=== PATIENT | male | born 1960 | race Caucasian/White ===

== ENCOUNTER 2019-07-27 19:07 | Inpatient (IN) ==
[2019-07-27] MEDS ORDERED: ONDANSETRON INJ 2 MG/ML 2 ML VIAL IV STA (19:16)
[2019-07-27] MEDS ORDERED: SODIUM CHLORIDE 0.9% 1000ML 1,000 ML IV SCH (19:30)
--- NOTE | 2019-07-27 19:32 | Emergency Department Note ---
Entered by Destiney Carroll acting as a scribe for History of Present Illness General Chief complaint: Mental Health Evaluation Stated complaint: ETOH, MHID Time Seen by Provider: 07/27/19 19:08 Source: patient, family and EMS Mode of arrival: ambulatory Limitations: intoxication History of Present Illness Onset (ago): day(s) 1 Location: head Radiation: non-radiation Pain Consistency: + constant Relieved By: + none Exacerbated By: + other (drinking alcohol) Associated symptoms: + nausea/vomiting Treatments prior to arrival: none The patient is a 59 year old male who presents to the ED with complaints of ETOH overdose. He was brought to the ED via EMS. He drank 3/4 a bottle of 80 proof vodka starting at 1630 today and states he was trying to kill himself. He has been making suicidal statements all week per his . EMS states he vomited several times in the field. The patient denies doing any drugs today and EMS does not think he took anything else except drinking the vodka. He denies any recent falls or trauma. History is limited secondary to the patients current intoxication. Home Medications Home Medications Medication Instructions Recorded Confirmed Type No Known Home Medications 07/27/19 07/27/19 History Allergies Allergy/AdvReac Type Severity Reaction Status Date / Time No Known Allergies Allergy Unverified 07/27/19 19:50 Past Med/Surg History Medical History Alcoholism Depression Social History Feels Safe at Home: Yes Smoking Status: Never smoker Review of Systems See HPI for pertinent positives & negatives. Unobtainable due to cognitive status (ROS is limited secondary to ETOH intoxication) Physical Exam Vital Signs Vital Signs - 24 hr 07/27/19 19:27 07/27/19 20:30 07/27/19 21:11 Temperature 36.7 C Temperature Source Oral Pulse Rate 59 L Pulse Rate [Apical] 63 63 Pulse Rate from SpO2 Sensor Respiratory Rate 16 16 18 Respiratory Effort / Characteristics Non-Labored Spontaneous Non-Labored Spontaneous Non-Labored Spontaneous Respiratory Depth Normal Normal Normal Respiratory Pattern Regular Regular Blood Pressure 100/65 Blood Pressure [Left Arm] 104/59 L 70/40 L Blood Pressure Mean 76 Blood Pressure Mean [Left Arm] 74 50 Blood Pressure Position Lying Blood Pressure Position [Left Arm] Lying Right Lateral Pulse Oximetry 99 95 95 Oxygen Delivery Method Room Air Room Air Room Air Sepsis Recent Fever Within 48 Hours No Sepsis Action Taken by Nursing No Action Required 07/27/19 21:33 07/27/19 22:01 07/27/19 22:30 Temperature Temperature Source Pulse Rate Pulse Rate [Apical] 66 67 70 Pulse Rate from SpO2 Sensor Respiratory Rate 21 18 14 Respiratory Effort / Characteristics Non-Labored Spontaneous Non-Labored Spontaneous Non-Labored Spontaneous Respiratory Depth Normal Normal Normal Respiratory Pattern Regular Regular Regular Blood Pressure Blood Pressure [Left Arm] 89/53 L 92/58 L 106/56 L Blood Pressure Mean Blood Pressure Mean [Left Arm] 65 69 72 Blood Pressure Position Blood Pressure Position [Left Arm] Lying Lying Lying Pulse Oximetry 98 98 95 Oxygen Delivery Method Room Air Room Air Room Air Sepsis Recent Fever Within 48 Hours Sepsis Action Taken by Nursing 07/27/19 23:00 07/27/19 23:30 07/28/19 00:30 Temperature Temperature Source Pulse Rate 70 71 Pulse Rate [Apical] 68 Pulse Rate from SpO2 Sensor 70 70 Respiratory Rate 15 15 18 Respiratory Effort / Characteristics Non-Labored Respiratory Depth Normal Respiratory Pattern Blood Pressure 97/59 L 92/58 L Blood Pressure [Left Arm] 111/68 Blood Pressure Mean 71 72 Blood Pressure Mean [Left Arm] 82 Blood Pressure Position Blood Pressure Position [Left Arm] Pulse Oximetry 94 94 97 Oxygen Delivery Method Room Air Sepsis Recent Fever Within 48 Hours Sepsis Action Taken by Nursing GENERAL: The patient is listless and slow to respond to questioning. He does appear somewhat intoxicated. He does follow commands well however. EYES: The conjunctivae are clear. The pupils are round and reactive. EARS, NOSE, MOUTH AND THROAT: The nose is without any evidence of any deformity. Mucous membranes are moist. Tongue is midline. NECK: The neck is nontender and supple. RESPIRATORY: Normal respiratory effort is noted there is no evidence of wheezing rhonchi or rales CARDIOVASCULAR: Regular rate and rhythm noted there no murmurs rubs or gallops normal S1 normal S2. GASTROINTESTINAL: The abdomen is soft. Abdomen is nontender. MUSCULOSKELETAL/EXTREMITIES: There is no evidence of gross deformity full range of motion is noted in the hips and shoulders. SKIN: There is no obvious evidence of any rash. There are no petechiae, pallor or cyanosis noted. NEUROLOGIC: Patient is oriented to person place and situation. The patient follows commands well and strength is symmetric. PSYCH: The patient is listless and his affect is very flat. He does admit to suicidal ideation. The patient's suicide note was also reviewed by myself with the mental health nurse outreach case manager. Course Course 191: The patient was evaluated in room A4 and a complete history and physical were performed. 0030: The patient will be evaluated by Mental Health when he is clinically sober. 0200: Psychiatric Case Management informed me the patient has been accepted by [facility] and will be further evaluated upstairs. Administered Medications Discontinued Medications Sodium Chloride (Nss 1000ml) 1,000 mls @ 999 mls/hr IV .Q1H1M JACKELYN Stop: 07/27/19 20:30 Last Infusion: 07/27/19 20:47 Dose: 0 mls/hr Documented by: [id number] Admin: 07/27/19 19:47 Dose: 999 mls/hr Documented by: [id number] Sodium Chloride (Nss 1000ml) 1,000 mls @ 999 mls/hr IV .Q1H1M ONE Stop: 07/27/19 22:04 Last Infusion: 07/27/19 22:11 Dose: 0 mls/hr Documented by: [id number] Admin: 07/27/19 21:10 Dose: 999 mls/hr Documented by: [id number] Ondansetron HCl (Zofran) 4 mg IV NOW STA Stop: 07/27/19 19:17 Last Admin: 07/27/19 19:46 Dose: 4 mg Documented by: [id number] Medical Decision Making Differential Diagnosis Differential: Mood Disorder, Overdose, Infectious, Electrolyte Abnormality, Cardiac, Hepatic, Endocrine, Toxicologic, Neurologic, amongst other pathologies entertained. Medical Records Attestation: I reviewed the patient's medical records. Home Medications Current Medication List: was personally reviewed by me Laboratory Data Attestation: I reviewed the patient's lab results. Result diagrams: 07/27/19 19:51 07/27/19 19:51 Lab Results 07/27/19 07/27/19 07/27/19 Range/Units 19:51 19:51 19:51 WBC 8.14 (4.8-10.8) K/uL RBC 4.23 L (4.7-6.1) M/uL Hgb 14.3 (14.0-18.0) g/dL Hct 41.0 L (42-52) % MCV 96.9 (80-100) fL MCH 33.8 (25-34) pg MCHC 34.9 (32-36) g/dL RDW Std Deviation 44.7 (36.4-46.3) fL RDW Coeff of Haley 12.7 (11.5-14.5) % Plt Count 278 (130-400) K/uL MPV 12.0 H (7.4-10.4) fL Immature Gran % (Auto) 0.2 % Neut % (Auto) 71.9 % Lymph % (Auto) 20.5 % Bureau % (Auto) 4.9 % Eos % (Auto) 2.0 % Baso % (Auto) 0.5 % Immature Gran # (Auto) 0.02 (0.00-0.02) K/uL Neut # (Auto) 5.85 (1.4-6.5) K/uL Lymph # (Auto) 1.67 (1.2-3.4) K/uL Bureau # (Auto) 0.40 (0.11-0.59) K/uL Eos # (Auto) 0.16 (0-0.5) K/uL Baso # (Auto) 0.04 (0-0.2) K/uL PT 11.0 (9.0-12.0) Seconds INR 1.1 (0.9-1.1) Carboxyhemoglobin % THgb Sodium 137 (136-145) mmol/L Potassium 3.4 L (3.5-5.1) mmol/L Chloride 106 (98-107) mmol/L Carbon Dioxide 22 (21-32) mmol/L Anion Gap 9.0 (3-11) BUN 14 (7-18) mg/dl Creatinine 0.98 (0.6-1.4) mg/dl Est Cr Clr Drug Dosing 79.2 ml/min Est GFR ( Amer) 96.1 Est GFR (Non-Af Amer) 82.9 BUN/Creatinine Ratio 14.3 (10-20) Glucose 121 H (70-99) mg/dl Osmolality (280-300) mOsm/kg Calcium 8.8 (8.5-10.1) mg/dl Magnesium 2.2 (1.8-2.4) mg/dl Total Bilirubin 1.4 H (0.2-1) mg/dl AST 15 (15-37) U/L ALT 20 (12-78) U/L Alkaline Phosphatase 47 (45-117) U/L Total Creatine Kinase 73 (39-308) U/L Troponin I < 0.015 (0-0.045) ng/ml Total Protein 7.0 (6.4-8.2) gm/dl Albumin 4.1 (3.4-5.0) gm/dl Globulin 2.9 (2.5-4.0) gm/dl Albumin/Globulin Ratio 1.4 (0.9-2) Urine Color Urine Appearance (Clear) Urine pH (4.5-7.5) Ur Specific [place] (1.000-1.030) Urine Protein (Negative) Urine Glucose (UA) (Negative) Urine Ketones (Negative) Urine Blood (Negative) Urine Nitrite (Negative) Urine Bilirubin (Negative) Urine Urobilinogen (Negative) Ur Leukocyte Esterase (Negative) Salicylates (2.8-20) mg/dl Urine Opiates Screen (Neg) Ur Methadone, Qual (Neg) Acetaminophen (10-30) ug/ml Urine Barbiturates (Neg) Ur Phencyclidine (PCP) (Neg) U Amphetamin/Meth Scrn (Neg) MDMA (Ecstasy) Screen (Neg) U Benzodiazepines Scrn (Neg) Ur Cocaine Metabolite (Neg) U Marijuana (THC) Screen (Neg) Ethyl Alcohol mg/dL (0-3) mg/dl 07/27/19 07/27/19 07/27/19 Range/Units 19:51 19:51 19:51 WBC (4.8-10.8) K/uL RBC (4.7-6.1) M/uL Hgb (14.0-18.0) g/dL Hct (42-52) % MCV (80-100) fL MCH (25-34) pg MCHC (32-36) g/dL RDW Std Deviation (36.4-46.3) fL RDW Coeff of Haley (11.5-14.5) % Plt Count (130-400) K/uL MPV (7.4-10.4) fL Immature Gran % (Auto) % Neut % (Auto) % Lymph % (Auto) % Bureau % (Auto) % Eos % (Auto) % Baso % (Auto) % Immature Gran # (Auto) (0.00-0.02) K/uL Neut # (Auto) (1.4-6.5) K/uL Lymph # (Auto) (1.2-3.4) K/uL Bureau # (Auto) (0.11-0.59) K/uL Eos # (Auto) (0-0.5) K/uL Baso # (Auto) (0-0.2) K/uL PT (9.0-12.0) Seconds INR (0.9-1.1) Carboxyhemoglobin % THgb Sodium (136-145) mmol/L Potassium (3.5-5.1) mmol/L Chloride (98-107) mmol/L Carbon Dioxide (21-32) mmol/L Anion Gap (3-11) BUN (7-18) mg/dl Creatinine (0.6-1.4) mg/dl Est Cr Clr Drug Dosing ml/min Est GFR ( Amer) Est GFR (Non-Af Amer) BUN/Creatinine Ratio (10-20) Glucose (70-99) mg/dl Osmolality 339 H (280-300) mOsm/kg Calcium (8.5-10.1) mg/dl Magnesium (1.8-2.4) mg/dl Total Bilirubin (0.2-1) mg/dl AST (15-37) U/L ALT (12-78) U/L Alkaline Phosphatase (45-117) U/L Total Creatine Kinase (39-308) U/L Troponin I (0-0.045) ng/ml Total Protein (6.4-8.2) gm/dl Albumin (3.4-5.0) gm/dl Globulin (2.5-4.0) gm/dl Albumin/Globulin Ratio (0.9-2) Urine Color Urine Appearance (Clear) Urine pH (4.5-7.5) Ur Specific [place] (1.000-1.030) Urine Protein (Negative) Urine Glucose (UA) (Negative) Urine Ketones (Negative) Urine Blood (Negative) Urine Nitrite (Negative) Urine Bilirubin (Negative) Urine Urobilinogen (Negative) Ur Leukocyte Esterase (Negative) Salicylates < 1.7 L (2.8-20) mg/dl Urine Opiates Screen (Neg) Ur Methadone, Qual (Neg) Acetaminophen < 2 L (10-30) ug/ml Urine Barbiturates (Neg) Ur Phencyclidine (PCP) (Neg) U Amphetamin/Meth Scrn (Neg) MDMA (Ecstasy) Screen (Neg) U Benzodiazepines Scrn (Neg) Ur Cocaine Metabolite (Neg) U Marijuana (THC) Screen (Neg) Ethyl Alcohol mg/dL 211.0 H (0-3) mg/dl 07/27/19 07/28/19 07/28/19 Range/Units 20:05 00:26 00:26 WBC (4.8-10.8) K/uL RBC (4.7-6.1) M/uL Hgb (14.0-18.0) g/dL Hct (42-52) % MCV (80-100) fL MCH (25-34) pg MCHC (32-36) g/dL RDW Std Deviation (36.4-46.3) fL RDW Coeff of Haley (11.5-14.5) % Plt Count (130-400) K/uL MPV (7.4-10.4) fL Immature Gran % (Auto) % Neut % (Auto) % Lymph % (Auto) % Bureau % (Auto) % Eos % (Auto) % Baso % (Auto) % Immature Gran # (Auto) (0.00-0.02) K/uL Neut # (Auto) (1.4-6.5) K/uL Lymph # (Auto) (1.2-3.4) K/uL Bureau # (Auto) (0.11-0.59) K/uL Eos # (Auto) (0-0.5) K/uL Baso # (Auto) (0-0.2) K/uL PT (9.0-12.0) Seconds INR (0.9-1.1) Carboxyhemoglobin 0.0 % THgb Sodium (136-145) mmol/L Potassium (3.5-5.1) mmol/L Chloride (98-107) mmol/L Carbon Dioxide (21-32) mmol/L Anion Gap (3-11) BUN (7-18) mg/dl Creatinine (0.6-1.4) mg/dl Est Cr Clr Drug Dosing ml/min Est GFR ( Amer) Est GFR (Non-Af Amer) BUN/Creatinine Ratio (10-20) Glucose (70-99) mg/dl Osmolality (280-300) mOsm/kg Calcium (8.5-10.1) mg/dl Magnesium (1.8-2.4) mg/dl Total Bilirubin (0.2-1) mg/dl AST (15-37) U/L ALT (12-78) U/L Alkaline Phosphatase (45-117) U/L Total Creatine Kinase (39-308) U/L Troponin I (0-0.045) ng/ml Total Protein (6.4-8.2) gm/dl Albumin (3.4-5.0) gm/dl Globulin (2.5-4.0) gm/dl Albumin/Globulin Ratio (0.9-2) Urine Color Yellow Urine Appearance Clear (Clear) Urine pH 5.0 (4.5-7.5) Ur Specific [place] 1.017 (1.000-1.030) Urine Protein Negative (Negative) Urine Glucose (UA) Negative (Negative) Urine Ketones 1+ H (Negative) Urine Blood Negative (Negative) Urine Nitrite Negative (Negative) Urine Bilirubin Negative (Negative) Urine Urobilinogen Negative (Negative) Ur Leukocyte Esterase Negative (Negative) Salicylates (2.8-20) mg/dl Urine Opiates Screen Neg (Neg) Ur Methadone, Qual Neg (Neg) Acetaminophen (10-30) ug/ml Urine Barbiturates Neg (Neg) Ur Phencyclidine (PCP) Neg (Neg) U Amphetamin/Meth Scrn Neg (Neg) MDMA (Ecstasy) Screen Neg (Neg) U Benzodiazepines Scrn Neg (Neg) Ur Cocaine Metabolite Neg (Neg) U Marijuana (THC) Screen Neg (Neg) Ethyl Alcohol mg/dL (0-3) mg/dl Imaging Data Radiologist's Impression: Radiology results as stated below per my review and the radiologist's interpretation: XR chest 1V portable CLINICAL HISTORY: OD COMPARISON STUDY: No previous studies for comparison. FINDINGS: Lung volumes are normal. There is no pneumothorax or pleural effusion. There are biapical opacities. Cardiomediastinal silhouette is unremarkable. There is no consolidation to suggest pneumonia and there is no evidence for pulmonary edema. IMPRESSION: 1. No acute cardiopulmonary findings. 2. Symmetric biapical opacities which are nonspecific but favor scarring. Radiographic follow-up is recommended. ACT 112: Negative or not required by law. Electronically signed by: Kevon Paredes M.D. 07/27/2019 7:56 PM ECG Data Attestation: I personally reviewed and interpreted this ECG as follows: Indication: + other (mental health ) Rate (beats per minute): 62 ECG Findings: + Other (No acute ST segments); no PACs and no PVCs Comparison ECG Date: no prior available Blood Pressure Blood Pressure Findings: Normal blood pressure Blood Pressure Disposition: did not require urgent referral MDM Narrative MDM: Measured serum osmolality is 339, there was no osmolar gap. The patient is a 59-year-old male who presented to the emergency department for a mental health evaluation. The patient was accompanied by his significant other as well as the police. The patient had a significant suicidal gesture this evening. He states that he has been feeling suicidal recently because of problems with his significant other. The patient has been receiving therapy with his significant other but things do not appear to be going well and the patient started drinking alcohol this evening in an attempt to hurt himself. The patient was treated with IV fluids in the emergency department. He was medically cleared in the emergency department. At this time his urine is still pending but he is much less clinically intoxicated. The patient is currently being evaluated by the mental health nurse outreach case manager. Likely the patient will require inpatient management to further treat this significant suicidal gesture. The patient was evaluated by the delegate from [facility] He was felt to be a good candidate for inpatient management. He was admitted to [facility] for further treatment. Impression & Plan Suicidal ideation, Depression, Alcohol intoxication, Suicide gesture Discharge Plan Visit Data *Final* Discharge Date/Time: 07/28/19 02:29 Chief Complaint: Mental Health Evaluation Stated Complaint: ETOH, MHID ED Provider: Clem Yeobah Discharge Problem: Suicidal ideation, Depression, Alcohol intoxication, Suicide gesture Patient Disposition: Admitted As Inpatient Discharge Instructions Interventions: ED Discharge Assessment Last Done: 07/28/19 02:29 The scribe's documentation has been prepared under my direction and personally reviewed by me in its entirety. I confirm that the note above accurately reflects all work, treatment, procedures, and medical decision making performed by me.
--- NOTE | 2019-07-27 19:57 | XRay Report ---
XR chest 1V portable CLINICAL HISTORY: OD COMPARISON STUDY: No previous studies for comparison. FINDINGS: Lung volumes are normal. There is no pneumothorax or pleural effusion. There are biapical o pacities. Cardiomediastinal silhouette is unremarkable. There is no consolidation to suggest pneumoni a and there is no evidence for pulmonary edema. IMPRESSION: 1. No acute cardiopulmonary findings. 2. Symmetric biapical opacities which are nonspecific but favor scarring. Radiographic follow-up is r ecommended. ACT 112: Negative or not required by law. Electronically signed by: Kevon Paredes M.D. 07/27/2019 7:56 PM
[2019-07-27 20:05] LABS: Basophils # (auto) 0.04 K/uL (0-0.2); Basophils % (auto) 0.5 %; Eosinophils # (auto) 0.16 K/uL (0-0.5); Hemoglobin 14.3 g/dL (14.0-18.0); Immature Granulocytes # (auto) 0.02 K/uL (0.00-0.02); Immature Granulocytes % (auto) 0.2 %; Lymphocytes # (auto) 1.67 K/uL (1.2-3.4); Lymphocytes % (auto) 20.5 %; Mean Corpuscular Hemoglobin 33.8 pg (25-34); Mean Corpuscular Hgb Conc 34.9 g/dL (32-36); Mean Corpuscular Volume 96.9 fL (80-100); Monocytes % (auto) 4.9 %; Neutrophils # (auto) 5.85 K/uL (1.4-6.5); Neutrophils % (auto) 71.9 %; Platelet Count 278 K/uL (130-400); RDW Coefficient of Variation 12.7 % (11.5-14.5); RDW Standard Deviation 44.7 fL (36.4-46.3); Red Blood Count 4.23 M/uL (4.7-6.1); White Blood Count 8.14 K/uL (4.8-10.8)
[2019-07-27 20:16] LABS: INR 1.1 (0.9-1.1)
[2019-07-27 20:30] LABS: Alanine Aminotransferase 20 U/L (12-78); Albumin Level 4.1 gm/dl (3.4-5.0); Aspartate Aminotransferase 15 U/L (15-37); BUN Creatinine Ratio 14.3 (10-20); Blood Urea Nitrogen 14 mg/dl (7-18); Calcium 8.8 mg/dl (8.5-10.1); Carbon Dioxide 22 mmol/L (21-32); Chloride 106 mmol/L (98-107); Creatinine Clr Calc Pharmacy 79.2 ml/min; Est GFR (African American) 96.1; Est GFR (Non-African American) 82.9; Glucose 121 mg/dl (70-99); Magnesium 2.2 mg/dl (1.8-2.4); Potassium 3.4 mmol/L (3.5-5.1); Sodium 137 mmol/L (136-145)
[2019-07-27 20:34] LABS: Albumin Globulin Ratio 1.4 (0.9-2); Alkaline Phosphatase 47 U/L (45-117); Bilirubin,Total 1.4 mg/dl (0.2-1); Creatine Kinase 73 U/L (39-308); Globulin 2.9 gm/dl (2.5-4.0); Troponin I < 0.015 ng/ml (0-0.045)
[2019-07-27] MEDS ORDERED: SODIUM CHLORIDE 0.9% 1000ML 1,000 ML IV ONE (21:04)
[2019-07-27 21:19] LABS: Acetaminophen < 2 ug/ml (10-30); Salicylate < 1.7 mg/dl (2.8-20)
[2019-07-28 00:32] LABS: Appearance Urine Clear (Clear); Bilirubin Urine Negative (Negative); Blood Urine Negative (Negative); Color Urine Yellow; Glucose Urine UA Negative (Negative); Ketones Urine 1+ (Negative); Leukocyte Esterase Urine Negative (Negative); Nitrite Urine Negative (Negative); Protein Urine Negative (Negative); Specific Gravity Urine 1.017 (1.000-1.030); Urobilinogen Urine Negative (Negative)
[2019-07-28 00:51] LABS: Amphetamines+Metham, Urine Neg (Neg); Barbiturates, Urine Neg (Neg); Benzodiazepine, Urine Neg (Neg); Cocaine, Urine Neg (Neg); MDMA (Ecstacy), Urine Neg (Neg); Methadone, Urine Neg (Neg); Opiate, Urine Neg (Neg); Phencyclidine, Urine Neg (Neg)
[2019-07-28] MEDS ORDERED: BISMUTH SUBSALICYLATE PER ML OMNICELL CHARGE PO PRN (03:09)
[2019-07-28] MEDS ORDERED: ALUMINUM/MAGNESIUM SUSP 30 ML UDC PO PRN (03:09)
[2019-07-28] MEDS ORDERED: ACETAMINOPHEN 325 MG TAB PO PRN (03:09)
[2019-07-28] MEDS ORDERED: MAGNESIUM HYDROXIDE SUSP 30 ML UDC PO PRN (03:09)
[2019-07-28] MEDS ORDERED: SODIUM CHLORIDE 0.65% NA SOLN 45 ML (OCEAN) PRN (03:09)
--- NOTE | 2019-07-28 07:38 | History & Physical ---
Date of Service July 28, 2019 Impression / Recommendations Impression 59 y/o M with a remote history of anxiety, never formally diagnosed, who presents after a suicide attempt by alcohol overdose in the context of marital discord. He wrote suicide notes and drank 1/2-3/4 of a bottle of vodka, and his found him altered. He signed in voluntarily but immediately submitted a 72 hour notice requesting to withdraw from treatment, stating "three days is plenty of time to reflect on what you've done," and that he feels gratitude that he did not . Advised him that he is not stable for discharge and reviewed 201 vs 302. He clearly meets involuntary commitment criteria, and if he insists on leaving will need to consider an involuntary commitment. Currently he states a willingness to work in treatment and is stating he doesn't want to leave right now, but was told "if I didn't sign in, you guys would commit me." (1) Suicidal ideation: 3/ - Patient attempted suicide by alcohol overdose, left suicide note and instructions for his , and stated he intended to . - Work on healthy coping skills and discharge safety plan, including access to lethal means. He denies access to guns, and does not take any medications. (2) Depression: 3/ - Discussed diagnoses and treatment options, including medication, therapy, and behavioral interventions/lifestyle (sleep, nutrition, exercise, soc ialization, etc). He is focused on wanting to address the situation with his first, thinking that he might still be able to go to [place] with her this coming weekend. He is considering going to visit his parents in [place] next week while on spring break, if he doesn't go with his . - Family meeting with 7th grade social studies teacher and today. - Encourage patient to rescind his 72 hour notice and engage fully in treatment. Advised him that I do not feel he is stable for discharge, and am concerned that he is still at high risk of suicide, as no risk factors have been addressed. - Recommend outpatient mental health care. He recently started couples' counseling, and recommend individual therapy as well. 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 Chief Complaint "It's the culmination of a ruinous 4 to 5 week stretch". History of Present Illness Patient presented to the ER yesterday, 07/27/2019, via EMS after his found him altered with a suicide note. He reported drinking three quarters of a bottle of 80 proof vodka starting at 1630 in an attempt to kill himself. His reported he had been making suicidal statements all week, and does not typically abuse alcohol. She stated that they have been having marital problems and that she is moving to [place] and he is not going with her, which has been difficult for him. She stated that she reiterated this to him the day of presentation, telling him that their lease is up soon and that he cannot move to [place] with her. EMS reported he vomited several times in the field, and his BAL was 211 in the ER. The suicide note was brought in, and per ER human services case manager notes read: "Deatoy Klein, Deep jack, Forgive me, but I cannot live up to the deal. Not going house hunting is more than I can bear. Aside from not throwing me out on the street I can see no true upside to the argument ou propose. Time has ran out on our story. They cycle is complete. I cannot and will not beg you any longer. The crimes and the punishment are not the same magnitude. If you have any intention of letting us "try", it is a very very small one. The time may be coincidental, but I am unsure. You have been my world and I don't want to contemplate a world without you. I believe you are made farther down the road, and ultimately you will see that I have freed you from a burden. ou are free now, free to seek happiness I promised to bring yo but could not. Your family has been generous, also in spirit, with me, I know they wish something else for you. I too wish something else for you, a better man, a man you can build a life with and grows old with. Move on. The sooner the better. Wipe me off the slate. I regret I cannot give a toast at you graduation. you accomplishment amazes me, and everyone is proud of you. I know you will succeed. You have been the author of the sweetest moments of my life. Finding you made ma want to live forever. Losing you will have a related effect. I am truly sorry, so sorry, for what I have put ou through. I have a knack for ruining things. It has taken me a while, too long, to grasp the severity of your suffering. I now must agree with you that I can only-mean more suffering for you. I have no upside potential. It is my decision to rather than face life without you. Your family and your ferdinand, as well as time and distance, will help you heal. You will be better off. My final thoughts are of your sweet kiss and beautiful eyes. No man has ever been happier in an embrace. No man has felt safer or more loved, and for that you have my eternal gratitude. Thank you for every minute. Jaswant will need paperwork, please be patient, she needs it. Her contact info is on my phone. There are bulk boxes which contain a history of my life. These memories are anders to JJ I am sure and I ask you to figure a way for him to g et all of it. My clothes should all be donated or thrown away. I wish only the best for everyone, I cannot face a life without the most meaningful thing. I do not wish to be resuscitated. I wish to be disposed of, cremated, with photos of Latoya and me on out day. It was a very happy day for me. Please respect my wishes that there be no anabaptism overtones whatsoever. No God worth believing in would have let things happen this suddenly and severely. Latoya, I trust ou entirely to do the right thing with any saving or accounts you feel should belong to JJ. The two of ou can work it out I am sure." A 302 petition was completed by his and reads: "After learning I wanted to have a trial separation due to marital issues, Trisha has exhibited concerning behaviors. He has on multiple occasions threatened that he would kill himself if I leave him. He says that he would have no reason to live if I'm not there. He took a knife out of the kitchen drawer and acted like he was going to stab himself and also brandished about which scared me. He told me he had Googled how to kill himself by stabbing. I came home tonight and he had drank over half a bottle of vodka. He was attempting to kill himself with this action. He told me he had failed though because he didn't drink enough. He wrote two notes to me. The notes seemed to be suicide notes (final thoughts) but I didn't read them fully." EKG in the ER was normal sinus rhythm with a rate of 62 and QTC 475. Laboratory work-up also notable for RBC 4.23, hematocrit 41.0, MPV 12, potassium 3.4, glucose 121, total bilirubin 1.4, negative troponin, and UA with 1+ ketones. He was observed in the ER until he was clinically sober, was assessed by the human services case manager, and admitted to attempting suicide by alcohol overdose and writing a suicide note. He reported feeling suicidal for the past 3 days due to marital conflict and his leaving him. He denies any psychiatric history or history of suicide attempts, but has been attending marital therapy with his . He endorsed poor sleep, appetite, and mood for the past 2 weeks, stating he had lost 4 pounds, as well as guilt, stating "this is all my fault." He agreed to voluntary admission, and then submitted a 72-hour notice immediately upon arrival at the unit, stating he needed to get home to see his . He met with the 7th grade social studies teacher today and a meeting is scheduled with his this afternoon, as the patient was insisting that the meeting happen right away. On my assessment, he reports he has been distressed over the past 4-5 weeks due to deterioration of his marriage. He is in his second marriage for the past 2 years (but together for 6.5 years) and they have been in marital counseling due to problems in their relationship. They moved here for his 's graduate program, and she is about to graduate and move to [place] for a job, and told him about 4 months ago that he was not coming with her. He says this "sounds like someone who wants to get out, and wants a clear conscience. When this became a certainty, and not a possibility, I didn't cope with it well, just cry and cry." He was further distressed when she told him she could not come with her to [place] to look for houses. Yesterday was their last day to renew their lease in their apartment here, and he made a plea for her to reconsider and allow him to come with her, but "she steadfastly said no, and not only said no, but said I couldn't come with her on the house hunting trip." She is going to [place] this coming weekend to look for houses, and he "decided I can't stay in [place] without her." He says he is "trapped in [place], I don't particularly like my job...don't think I can face putting a brave face on here, and very certain also that I can't go creeping back to my mom and dad's house at age 59 with 2 failed marriages behind me." He repeatedly states he does not like it here and "it's not my home," and doesn't feel he could stay here without his as " everything reminds me of her." Yesterday he went to work yesterday for an inservice day (after the discussion with his ), left for lunch and texted 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 He thinks he sent her a text message stating "please come home I need help." He reports feeling hung over today, and denies that he drinks alcohol very often. He reports feeling "shocked at the whole thing," stating he thinks his will "let the suicidal spouse get back on their feet, then say you want a divorce." He does not think he has been depressed, "I'd say more manic, more panicky." He has not been able to sleep so has been taking Tylenol PM every night, and still not sleeping much. He has lost "a couple pounds" which he attributes to cutting out sugar in 05/2019 in order to lose weight and be healthier. He describes his mood as "scared and desperate, don't know what it is I can do to put things right, and I fear I've made things worse every step I've taken." He reports suicidal thoughts "recently," stating "if you feel this way, shouldn't you have the right?" He says he has been thinking that "this will kill me" if his leaves him in [place], "but I think that was just dramatic." He states he would not want to end his life due to the negative impact on his son and parents, "it's a very selfish thing to do." He is thinking about going to live with his parents ([place]) or son ([place]). He denies problems completing tasks or missing work other than yesterday. He denies manic (other than racing thoughts when worried) and psychotic symptoms, and denies symptoms of EMELY and panic, other than 1 panic attack at age 18, and recent worry about his marriage which has intensified over the past few weeks. He states he submitted a 72 hour notice as he wants to return to his job and , and is not requesting to leave this minute. He is not interested in medications, "I don't take them," and does not feel he needs them at this time. He states he has no friends and has always relied on his for support, but has thought about going to live with his elderly parents or his 26 year old son. Social work clarified that he actually took a knife out of a drawer last week and was initially fearful he was going to hurt her, but he said he was thinking of hurting himself, and repeatedly told his he was going to kill himself. Past Psychiatric History Previous Psych History: Denies Outpatient Services: None Previous Psych Admissions: Denies Do You Have Access To A Gun?: No History of Previous Suicide Attempt: No Past Medication Trials: Denies, other than being prescribed Valium after a panic attack at age 18, which he never took. Allergies Allergy/AdvReac Type Severity Reaction Status Date / Time No Known Allergies Allergy Unverified 07/27/19 19:50 Home Medications Home Medications Medication Instructions Recorded Confirmed Type No Known Home Medications 07/27/19 07/27/19 History Family History Family History of: None Alcohol History Hx of Alcohol Use Over the Past 12 Months: Yes (occassional glass of wine with dinner) AUDIT Total Score: 0 Smoking Use Smoking Status: Never smoker Substance History Hx of Prescription Med Misuse Over the Past 12 Months: No Hx of Over the Counter Med Misuse Over the Past 12 Months: No Hx of Inhalent Misuse Over the Past 12 Months: No Hx of Organic Substance Use Over the Past 12 Months: No Hx of Illegal Substances/Street Drug Use Over Past 12 Months: No Problems as a Result of Past Substance Use: None Identified Personal History Living Arrangements: Apartment Living Arrangements Comments: With , although she is leaving to move to [place], and they will be . 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[employer]) Marital Status: (x 2) Number Of Children: 1 son, age 26, lives in [place] Beliefs That Will Affect Care: None Current Legal Problems: No Hx Traumatic Life Events: No Patient History Medical History Alcoholism Depression Social History Preferred Language: Ghanaian Communication Ability: Effective Beliefs That Will Affect Care: None Feels Safe at Home: Yes Smoking Status: Never smoker Review of Systems Review of Systems: All systems reviewed & are unremarkable except as noted in HPI & below hangover Physical Exam Psychiatric: Orientation: alert, oriented x 3 and cooperative Apperance: appropriately dressed, appropriately groomed and appeared stated age Eye Contact: + fair eye contact Motor Behavior: steady gait and station and no abnormal motor movements Speech: normal rate/rhythm/volume of speech talkative Affect: + anxious affect Mood: + anxious mood Thought Process: goal directed thought process and linear/logical thought process Thought Content: reality based without delusions Suicidal Thoughts: denies suicidal thoughts but admits overdose yesterday was a sucide attempt Homicidal Thoughts: denies homicidal thoughts Hallucinations: no auditory hallucinations and no visual hallucinations Cognition: recent memory grossly intact, remote memory grossly intact, attention grossly intact and language grossly intact Estimated Intelligence: consistent with education level Insight: + impaired insight Judgement: + impaired judgement Vital Signs (Past 24 Hours): Last Vital Signs Temp 36.6 C 07/28/19 06:48 Pulse 71 07/28/19 06:53 Resp 18 07/28/19 06:48 BP 91/60 L 07/28/19 06:53 Pulse Ox 99 07/28/19 01:56 Exam Statement: A physical exam was performed in the ER prior to admission to the unit by Dr. Clem Yeboah. I accept that physical as correct/medical clearance for the inpatient physical exam. Results & Data ([facility]) Laboratory Results Laboratory Results - last 24 hr 07/27/19 07/27/19 07/27/19 19:51 19:51 19:51 WBC 8.14 RBC 4.23 L Hgb 14.3 Hct 41.0 L MCV 96.9 MCH 33.8 MCHC 34.9 RDW Std Deviation 44.7 RDW Coeff of Haley 12.7 Plt Count 278 MPV 12.0 H Immature Gran % (Auto) 0.2 Neut % (Auto) 71.9 Lymph % (Auto) 20.5 Island % (Auto) 4.9 Eos % (Auto) 2.0 Baso % (Auto) 0.5 Immature Gran # (Auto) 0.02 Neut # (Auto) 5.85 Lymph # (Auto) 1.67 Island # (Auto) 0.40 Eos # (Auto) 0.16 Baso # (Auto) 0.04 PT 11.0 INR 1.1 Carboxyhemoglobin Sodium 137 Potassium 3.4 L Chloride 106 Carbon Dioxide 22 Anion Gap 9.0 BUN 14 Creatinine 0.98 Est Cr Clr Drug Dosing 79.2 Est GFR ( Amer) 96.1 Est GFR (Non-Af Amer) 82.9 BUN/Creatinine Ratio 14.3 Glucose 121 H Osmolality Calcium 8.8 Magnesium 2.2 Total Bilirubin 1.4 H AST 15 ALT 20 Alkaline Phosphatase 47 Total Creatine Kinase 73 Troponin I < 0.015 Total Protein 7.0 Albumin 4.1 Globulin 2.9 Albumin/Globulin Ratio 1.4 Urine Color Urine Appearance Urine pH Ur Specific [place] Urine Protein Urine Glucose (UA) Urine Ketones Urine Blood Urine Nitrite Urine Bilirubin Urine Urobilinogen Ur Leukocyte Esterase Salicylates Urine Opiates Screen Ur Methadone, Qual Acetaminophen Urine Barbiturates Ur Phencyclidine (PCP) U Amphetamin/Meth Scrn MDMA (Ecstasy) Screen U Benzodiazepines Scrn Ur Cocaine Metabolite U Marijuana (THC) Screen Ethyl Alcohol mg/dL 07/27/19 07/27/19 07/27/19 19:51 19:51 19:51 WBC RBC Hgb Hct MCV MCH MCHC RDW Std Deviation RDW Coeff of Haley Plt Count MPV Immature Gran % (Auto) Neut % (Auto) Lymph % (Auto) Island % (Auto) Eos % (Auto) Baso % (Auto) Immature Gran # (Auto) Neut # (Auto) Lymph # (Auto) Island # (Auto) Eos # (Auto) Baso # (Auto) PT INR Carboxyhemoglobin Sodium Potassium Chloride Carbon Dioxide Anion Gap BUN Creatinine Est Cr Clr Drug Dosing Est GFR ( Amer) Est GFR (Non-Af Amer) BUN/Creatinine Ratio Glucose Osmolality 339 H Calcium Magnesium Total Bilirubin AST ALT Alkaline Phosphatase Total Creatine Kinase Troponin I Total Protein Albumin Globulin Albumin/Globulin Ratio Urine Color Urine Appearance Urine pH Ur Specific [place] Urine Protein Urine Glucose (UA) Urine Ketones Urine Blood Urine Nitrite Urine Bilirubin Urine Urobilinogen Ur Leukocyte Esterase Salicylates < 1.7 L Urine Opiates Screen Ur Methadone, Qual Acetaminophen < 2 L Urine Barbiturates Ur Phencyclidine (PCP) U Amphetamin/Meth Scrn MDMA (Ecstasy) Screen U Benzodiazepines Scrn Ur Cocaine Metabolite U Marijuana (THC) Screen Ethyl Alcohol mg/dL 211.0 H 07/27/19 07/28/19 07/28/19 20:05 00:26 00:26 WBC RBC Hgb Hct MCV MCH MCHC RDW Std Deviation RDW Coeff of Haley Plt Count MPV Immature Gran % (Auto) Neut % (Auto) Lymph % (Auto) Island % (Auto) Eos % (Auto) Baso % (Auto) Immature Gran # (Auto) Neut # (Auto) Lymph # (Auto) Island # (Auto) Eos # (Auto) Baso # (Auto) PT INR Carboxyhemoglobin 0.0 Sodium Potassium Chloride Carbon Dioxide Anion Gap BUN Creatinine Est Cr Clr Drug Dosing Est GFR ( Amer) Est GFR (Non-Af Amer) BUN/Creatinine Ratio Glucose Osmolality Calcium Magnesium Total Bilirubin AST ALT Alkaline Phosphatase Total Creatine Kinase Troponin I Total Protein Albumin Globulin Albumin/Globulin Ratio Urine Color Yellow Urine Appearance Clear Urine pH 5.0 Ur Specific [place] 1.017 Urine Protein Negative Urine Glucose (UA) Negative Urine Ketones 1+ H Urine Blood Negative Urine Nitrite Negative Urine Bilirubin Negative Urine Urobilinogen Negative Ur Leukocyte Esterase Negative Salicylates Urine Opiates Screen Neg Ur Methadone, Qual Neg Acetaminophen Urine Barbiturates Neg Ur Phencyclidine (PCP) Neg U Amphetamin/Meth Scrn Neg MDMA (Ecstasy) Screen Neg U Benzodiazepines Scrn Neg Ur Cocaine Metabolite Neg U Marijuana (THC) Screen Neg Ethyl Alcohol mg/dL Current Inpatient Medications Current Inpatient Medications: Current Inpatient Medications Acetaminophen (Tylenol) 650 mg PO Q4H PRN PRN Reason: Headache or Minor Fever Stop: 08/27/19 03:08 Al Hydrox/Mg Hydrox/Simethicone (Maalox) 30 ml PO Q4H PRN PRN Reason: GI Upset Stop: 08/27/19 03:08 Bismuth Subsalicylate (Kaopectate) 15 ml PO PRN PRN PRN Reason: Loose Stool Stop: 08/27/19 03:08 Hydroxyzine HCl (Vistaril) 50 mg PO HSZ PRN PRN Reason: Insomnia Stop: 08/27/19 03:08 Hydroxyzine HCl (Vistaril) 25 mg PO Q4H PRN PRN Reason: Anxiety Stop: 08/27/19 03:08 Magnesium Hydroxide (Milk Of Magnesia) 30 ml PO DAILY PRN PRN Reason: Constipation Stop: 08/27/19 03:08 Sodium Chloride (Marin Nasal) 1 - 2 sprays NA PRN PRN PRN Reason: Nasal Dryness/Congestion Stop: 08/27/19 03:08
--- NOTE | 2019-07-28 10:40 | Electrocardiogram Report ---
Test Reason : Blood Pressure : / mmHG Vent. Rate : 062 BPM Atrial Rate : 062 BPM P-R Int : 152 ms QRS Dur : 096 ms QT Int : 468 ms P-R-T Axes : 064 034 049 degrees QTc Int : 475 ms Normal sinus rhythm Poor R wave progression, consider anterior SC vs. lead placement vs. LVH Abnormal ECG No previous ECGs available Confirmed by Clem Warren ([id number]) on 07/28/2019 10:39:46 AM Referred By: REFERRED SELF Confirmed By:Clem Warren
--- NOTE | 2019-07-29 12:35 | Psychiatric Progress Note ---
Date of Service July 29, 2019 Impression / Recommendations Impression 59 y/o M with a remote history of anxiety, never formally diagnosed, who presents after a suicide attempt by alcohol overdose in the context of marital discord. He wrote suicide notes and drank 1/2-3/4 of a bottle of vodka, and his found him altered. He signed in voluntarily but immediately submitted a 72 hour notice requesting to withdraw from treatment, stating "three days is plenty of time to reflect on what you've done," and that he feels gratitude that he did not . Initially, motivation to leave treatment so rapidly was questioned and there was consideration of whether or not patient may require involuntarily commitment for treatment based on the severity of his actions. After today's conversation, it appears patient has been reflecting on these actions as well as the impact a separation from his would have on his life. He is verbalizing increased insight into the situation and has worked with his outpatient supports to form an appropriate safety plan. Pt is planning to travel with his son to [place] next week while patient's is out of town, and is even considering moving in with his son. Reviewed with patient that while he does not meet 302 criteria at this time, discharge today is deemed to be unsafe as he has no aftercare in place to continue his treatment on an outpatient basis. Pt is understanding of these concerns and is hopeful for discharge tomorrow, admitting he is unwilling to rescind his 72-hour notice. (1) Suicidal ideation: 07/27 - Patient attempted suicide by alcohol overdose, left suicide note and instructions for his , and stated he intended to . - Work on healthy coping skills and discharge safety plan, including access to lethal means. He denies access to guns, and does not take any medications. 07/28 - Pt denies SI, he is better able to process the effect of his actions on his loved ones - Stating today he is "remorseful, regretful, and embarrassed" by his actions - able to recognize safety concerns expressed by treatment team and has been working on these (2) Depression: 3/ - Discussed diagnoses and treatment options, including medication, therapy, and behavioral interventions/lifestyle (sleep, nutrition, exercise, socialization, etc). He is focused on wanting to address the situation with his first, thinking that he might still be able to go to [place] with her this coming weekend. He is considering going to visit his parents in [place] next week while on spring break, if he doesn't go with his . - Family meeting with group social worker and today. - Encourage patient to rescind his 72 hour notice and engage fully in treatment. Advised him that I do not feel he is stable for discharge, and am concerned that he is still at high risk of suicide, as no risk factors have been addressed. - Recommend outpatient mental health care. He recently started couples' counseling, and recommend individual therapy as well. 3/4 - Pt continues to believe his presentation is isolated to a very specific event. While willing for medications if recommended, he is agreeable with plan to start individual therapy and explore medications if indicated at a later time. It remains unclear that patient has clinical criteria for a major depressive disorder, but will continue to attempt to gather collateral information - Pt had a meeting with his yesterday afternoon, in which he was informed of her definitive plans to divorce the patient - patient views the certainty of this decision as a positive thing for his continued treatment - Pt had a positive visit with his son, whom patient will be staying with next week while is is away - patient even considering moving to [place] to live with his son and son's girlfriend - Pt denies ongoing SI, and has worked on a safety plan, completing recommended steps toward discharge planning - Pt still does not have solidified outpatient treatment, therefore discharge is not being considered today. It is unlikely he will meet criteria for 302 once aftercare arrangements have been made - If unwilling to rescind his 72-hour notice, he will likely be discharged to [facility] tomorrow Inventory Assets Strengths: Education, supportive daughter Needs: therapy, coping skills, safety plan Risk Factors Assessment Male: Yes : Yes Do You Have Access To A Gun?: No Health Problems: No Mental Health Diagnoses: Yes Substance Use Disorders: No Previous Attempt: No Family History of Suicide: No Previous Psychiatric Hospitalization: No Hopelessness: Yes Smoker: No Protective Factors Assessment : Yes (but ) Responsible for Young Children: No 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 Chief Complaint "So, I guess you're aware of the underlying pathology?" Review of Systems Notes Constitutional: reports poor sleep last evening due to roommate's behaviors Cardiovascular: denied Respiratory: denied Gastrointestinal: denied Neurological: denied Psychiatric: denies symptoms other than stated above Total of at least 10 systems reviewed, pertinent positives as above and in HPI. Sleep Information Total Hours of Sleep: 6.5 Sleep Comments: . Meal Information Percent Meal Consumed - Breakfast: 100 Percent Meal Consumed - Lunch: 80 Percent Meal Consumed - Dinner: 90 Subjective Subjective Patient was seen & assessed and interval progress reviewed with treatment team. Staff report patient had a meeting with his yesterday afternoon, she remains supportive though the extent of the relationship at this point is still uncertain. Patient was agreeable with beginning individual therapy. His 72- hour notice remains in place at this time. Patient was seen today to assess progress since admission. He provides this PA-C with additional information regarding the reason for his admission, and then moved into an insightful analysis of his stay here thus far. Patient states "I had a meeting with my yesterday, that was the first time she definitively told me she wants a divorce. It was hard to hear, but I cried less when she said its final and I did when I was hoping it was not." Patient states that since hearing this news from his , he has been able to reflect more on what his life will look like moving forward. Patient does believe that there is little for him in the [place] area aside from his job, as he claims "I moved here for her, I rearranged my life so she could be the center of it." Patient informs this provider that at this time he has "concretely 3 options." He states that one option for him would be to remain in [place] and continue to work his current job, though he admits that once his moves to [place] he will have "no friends and very limited support outside of the therapist I am getting." He states that his second option would be to move to [place] with his parents, as "I figured at some point I would be caring for them in their older age anyway." Patient states that this is the least ideal option for him at this time. Patient states that his third option would be to move in with his son and his son's girlfriend, something that he states he is actually considering moving forward with. Patient had a long conversation with his son and his son's girlfriend on the unit this morning, and son was offering for the patient to move into their home and offered to assist him with searching for a job in [place] should the patient desire. The patient states "I am planning to spend spring in [place], I will fly back with them on Saturday and have a chance to see if that is definitely what I want to do." Patient states that by the time he would return back from [place], his would be back in town "so I will not be home alone or unattended at all in the next few weeks. Patient also states that he is completed the written portion of his safety plan from the patient workbook. Patient continues to report that he feels "remorseful, regretful, and embarrassed" by his suicide attempt, and continues to deny suicidal ideation at this time. Patient did request additional information regarding voluntary versus involuntary admission status as well as details regarding his 72-hour notice. Patient is hopeful for discharge tomorrow in accordance with his 72-hour notice, as he would like to ensure his son will be able to purchase a plane ticket for him to travel to [place] on Saturday. Patient denies additional needs or concerns and remains agreeable with referrals for an individual therapist in the area in order to continue psychiatric treatment. Physical Exam Psychiatric Orientation: alert, oriented x 3 and cooperative Apperance: appropriately dressed, appropriately groomed and appeared stated age Eye Contact: good eye contact Motor Behavior: steady gait and station and no abnormal motor movements Speech: normal rate/rhythm/volume of speech (well-spoken, soft and calm tone) Affect: + tearful affect (intermittently when discussing divorce and suicide attempt) and + blunted affect (appearing subdued, though not overtly depressed) Mood: + depressed mood Thought Process: goal directed thought process, clear/coherent thought process and thought association intact Thought Content: reality based without delusions; no hopelessness and no worth lessness Suicidal Thoughts: denies suicidal thoughts and denies suicidal intent "I couldn't do this to them again. My thoughts at the time were complete bologna." Homicidal Thoughts: denies homicidal thoughts Hallucinations: no auditory hallucinations and no visual hallucinations Cognition: attention grossly intact and language grossly intact Estimated Intelligence: + above average estimated intelligence Insight: + fair insight Judgement: + fair judgement Vital Signs (Past 24 Hours) Last Vital Signs Temp 36.7 C 07/29/19 06:53 Pulse 73 07/29/19 06:54 Resp 16 07/29/19 06:53 BP 105/71 07/29/19 06:54 Pulse Ox 99 07/28/19 01:56 Results & Data ([facility]) Laboratory Results Laboratory Results - last 24 hr 07/28/19 12:35 TSH 0.711 Current Inpatient Medications Current Inpatient Medications: Current Inpatient Medications Acetaminophen (Tylenol) 650 mg PO Q4H PRN PRN Reason: Headache or Minor Fever Stop: 08/27/19 03:08 Al Hydrox/Mg Hydrox/Simethicone (Maalox) 30 ml PO Q4H PRN PRN Reason: GI Upset Stop: 08/27/19 03:08 Bismuth Subsalicylate (Kaopectate) 15 ml PO PRN PRN PRN Reason: Loose Stool Stop: 08/27/19 03:08 Hydroxyzine HCl (Vistaril) 50 mg PO HSZ PRN PRN Reason: Insomnia Stop: 08/27/19 03:08 Last Admin: 07/28/19 23:02 Dose: 50 mg Documented by: Hydroxyzine HCl (Vistaril) 25 mg PO Q4H PRN PRN Reason: Anxiety Stop: 08/27/19 03:08 Magnesium Hydroxide (Milk Of Magnesia) 30 ml PO DAILY PRN PRN Reason: Constipation Stop: 08/27/19 03:08 Sodium Chloride ([place] Nasal) 1 - 2 sprays NA PRN PRN PRN Reason: Nasal Dryness/Congestion Stop: 08/27/19 03:08 Mental Health & Subst Abuse Tx Therapist Name of Therapist: couples therapist, Kael Mccarthy Date of Therapist Appointment: 07/28/19 Passenger Agent Name of Passenger Agent: NEVILLE Post Discharge Appointments Primary Care Physician Name Of Family Doctor: Haleigh Cannon Primary Care Provider Appointment Comment: [address], [place] [address] Contact Information Discharge Discharge Address: [address] [place] [address] [address], [place] [address]
--- NOTE | 2019-07-30 09:51 | Discharge Summary ---
Date of Service July 30, 2019 History of Present Illness Patient presented to the ER yesterday, 07/27/2019, via EMS after his found him altered with a suicide note. He reported drinking three quarters of a bottle of 80 proof vodka starting at 1630 in an attempt to kill himself. His reported he had been making suicidal statements all week, and does not typically abuse alcohol. She stated that they have been having marital problems and that she is moving to [place] and he is not going with her, which has been difficult for him. She stated that she reiterated this to him the day of presentation, telling him that their lease is up soon and that he cannot move to [place] with her. EMS reported he vomited several times in the field, and his BAL was 211 in the ER. The suicide note was brought in, and per ER transplant case manager notes read: "Deatoy Klein, Deep jack, Forgive me, but I cannot live up to the deal. Not going house hunting is more than I can bear. Aside from not throwing me out on the street I can see no true upside to the argument ou propose. Time has ran out on our story. They cycle is complete. I cannot and will not beg you any longer. The crimes and the punishment are not the same magnitude. If you have any intention of letting us "try", it is a very very small one. The time may be coincidental, but I am unsure. You have been my world and I don't want to contemplate a world without you. I believe you are made farther down the road, and ultimately you will see that I have freed you from a burden. ou are free now, free to seek happiness I promised to bring yo but could not. Your family has been generous, also in spirit, with me, I know they wish something else for you. I too wish something else for you, a better man, a man you can build a life with and grows old with. Move on. The sooner the better. Wipe me off the slate. I regret I cannot give a toast at you graduation. you accomplishment amazes me, and everyone is proud of you. I know you will succeed. You have been the author of the sweetest moments of my life. Finding you made ma want to live forever. Losing you will have a related effect. I am truly sorry, so sorry, for what I have put ou through. I have a knack for ruining things. It has taken me a while, too long, to grasp the severity of your suffering. I now must agree with you that I can only-mean more suffering for you. I have no upside potential. It is my decision to rather than face life without you. Your family and your ferdinand, as well as time and distance, will help you heal. You will be better off. My final thoughts are of your sweet kiss and beautiful eyes. No man has ever been happier in an embrace. No man has felt safer or more loved, and for that you have my eternal gratitude. Thank you for every minute. Jaswant will need paperwork, please be patient, she needs it. Her contact info is on my phone. There are bulk boxes which contain a history of my life. These memories are anders to I am sure and I ask you to figure a way for him to get all of it. My clothes should all be donated or thrown away. I wish only the best for everyone, I cannot face a life without the most meaningful thing. I do not wish to be resuscitated. I wish to be disposed of, cremated, with photos of Latoya and me on out day. It was a very happy day for me. Please respect my wishes that there be no zoroastrian overtones whatsoever. No God worth believing in would have let things happen this suddenly and severely. Latoya, I trust ou entirely to do the right thing with any saving or accounts you feel should belong to . The two of ou can work it out I am sure." A 302 petition was completed by his and reads: "After learning I wanted to have a trial separation due to marital issues, Je has exhibited concerning behaviors. He has on multiple occasions threatened that he would kill himself if I leave him. He says that he would have no reason to live if I'm not there. He took a knife out of the kitchen drawer and acted like he was going to stab himself and also brandished about which scared me. He told me he had Googled how to kill himself by stabbing. I came home tonight and he had drank over half a bottle of vodka. He was attempting to kill himself with this action. He told me he had failed though because he didn't drink enough. He wrote two notes to me. The notes seemed to be suicide notes (final thoughts) but I didn't read them fully." EKG in the ER was normal sinus rhythm with a rate of 62 and QTC 475. Laboratory work-up also notable for RBC 4.23, hematocrit 41.0, MPV 12, potassium 3.4, glucose 121, total bilirubin 1.4, negative troponin, and UA with 1+ ketones. He was observed in the ER until he was clinically sober, was assessed by the transplant case manager, and admitted to attempting suicide by alcohol overdose and writing a suicide note. He reported feeling suicidal for the past 3 days due to marital conflict and his leaving him. He denies any psychiatric history or history of suicide attempts, but has been attending marital therapy with his . He endorsed poor sleep, appetite, and mood for the past 2 weeks, stating he had lost 4 pounds, as well as guilt, stating "this is all my fault." He agreed to voluntary admission, and then submitted a 72-hour notice immediately upon arrival at the unit, stating he needed to get home to see his . He met with the psychologist social today and a meeting is scheduled with his this afternoon, as the patient was insisting that the meeting happen right away. On my assessment, he reports he has been distressed over the past 4-5 weeks due to deterioration of his marriage. He is in his second marriage for the past 2 years (but together for 6.5 years) and they have been in marital counseling due to problems in their relationship. They moved here for his 's graduate program, and she is about to graduate and move to [place] for a job, and told him about 4 months ago that he was not coming with her. He says this "sounds like someone who wants to get out, and wants a clear conscience. When this became a certainty, and not a possibility, I didn't cope with it well, just cry and cry." He was further distressed when she told him she could not come with her to [place] to look for houses. Yesterday was their last day to renew their lease in their apartment here, and he made a plea for her to reconsider and allow him to come with her, but "she steadfastly said no, and not only said no, but said I couldn't come with her on the house hunting trip." She is going to [place] this coming weekend to look for houses, and he "decided I can't stay in [place] [employer] without her." He says he is "trapped in [place], I don't particularly like my job...don't think I can face putting a brave face on here, and very certain also that I can't go creeping back to my mom and dad's house at age 59 with 2 failed marriages behind me." He repeatedly states he does not like it here and "it's not my home," and doesn't feel he could stay here without his as "everything reminds me of her." Yesterday he went to work yesterday for an inservice day (after the discussion with his ), left for lunch and 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 He thinks he sent her a text message stating "please come home I need help." He reports feeling hung over today, and denies that he drinks alcohol very often. He reports feeling "shocked at the whole thing," stating he thinks his will "let the suicidal spouse get back on their feet, then say you want a divorce." He does not think he has been depressed, "I'd say more manic, more panicky." He has not been able to sleep so has been taking Tylenol PM every night, and still not sleeping much. He has lost "a couple pounds" which he attributes to cutting out sugar in 05/2019 in order to lose weight and be healthier. He describes his mood as "scared and desperate, don't know what it is I can do to put things right, and I fear I've made things worse every step I've taken." He reports suicidal thoughts "recently," stating "if you feel this way, shouldn't you have the right?" He says he has been thinking that "this will kill me" if his leaves him in [place], "but I think that was just dramatic." He states he would not want to end his life due to the negative impact on his son and parents, "it's a very selfish thing to do." He is thinking about going to live with his parents ([place]) or son ([place]). He denies problems completing tasks or missing work other than yesterday. He denies manic (other than racing thoughts when worried) and psychotic symptoms, and denies symptoms of EMELY and panic, other than 1 panic attack at age 18, and recent worry about his marriage which has intensified over the past few weeks. He states he submitted a 72 hour notice as he wants to return to his job and , and is not requesting to leave this minute. He is not interested in medications, "I don't take them," and does not feel he needs them at this time. He states he has no friends and has always relied on his for support, but has thought about going to live with his elderly parents or his 26 year old son. Social work clarified that he actually took a knife out of a drawer last week and was initially fearful he was going to hurt her, but he said he was thinking of hurting himself, and repeatedly told his he was going to kill himself. Physical Exam Psychiatric Orientation: alert and cooperative Apperance: appropriately dressed, appropriately groomed and appeared stated age Eye Contact: good eye contact Motor Behavior: steady gait and station and no abnormal motor movements Speech: normal rate/rhythm/volume of speech Affect: euthymic affect and mood congruent with affect Mood: + anxious mood (mild anxiety but improved from admission); no depressed mood Thought Process: goal directed thought process and linear/logical thought process Thought Content: reality based without delusions Suicidal Thoughts: denies suicidal thoughts Homicidal Thoughts: denies homicidal thoughts Hallucinations: no auditory hallucinations and no visual hallucinations Estimated Intelligence: consistent with education level Insight: + fair insight Judgement: + fair judgement Vital Signs (Past 24 Hours) Last Vital Signs Temp 36.5 C 07/30/19 06:46 Pulse 73 07/30/19 06:47 Resp 18 07/30/19 06:46 BP 102/61 07/30/19 06:47 Pulse Ox 99 07/28/19 01:56 Principal Diagnosis Depression NOS OCPD traits Psychiatric Data Patient was hospitalized for 2 days. On admission, he was diagnosed with depression NOS and we discussed possible treatment options, including medications, therapy, and behavioral interventions to address grief and mood symptoms. He declined medications, stating he prefers to avoid medications if at all necessary, and that mood symptoms have occurred solely in the context of marital difficulties. He had multiple visits with his , who was supportive, and they had a family meeting with the psychologist social on 07/28/2019. His shared that she had decided that the marriage would not continue, and stated that from her perspective, the problems began in the fall due to what she considered to be a lie, and the patient thought constituted withholding information. Things worsened when he did not initially invite her to spend Thanksgiving with his son in [place], and then again worsened when she told him she did not want him to move with her to [place] or be included in the house hunting trip. He had mentioned suicide during that period, stating he did not see anything to live for if they were not together, and at one point had pulled out a knife, which his stated was very concerning and scary for her. She expressed she did not see a way for them to move forward as a couple, but still cared for him. There was some discussion about how things would work after discharge, and they indicated a plan to continue living together, but for different reasons, with his wanting to help the patient "get through this," and the patient wanting to hold onto a possibility of a continued relationship. His confirmed there are no guns in the home, and no other episodes of violence or threats of suicide. Patient indicated that he was no longer suicidal and did not believe he would try to harm himself again, and felt he would be able to move forward despite the outcome. His son and son's girlfriend came from [place] and also visited with the patient and met with the patient and staff; they made a plan for the patient to return to [place] with his son for the spring following discharge. He attended and participated in groups on the unit, and consistently denied suicidal ideation. He had some difficulty sleeping which he attributed to getting a roommate in the middle of the night, but was eating well and performing ADLs independently. He was calm a nd cooperative, no episodes of agitation or violence to himself or others. Day of Discharge Assessment Staff report the patient has been attending and participating in groups, had good visits with his , son, and son's girlfriend yesterday, and has been referred to [facility] for therapy, as he and his plan to continue couples therapy with Kael Mccarthy. He continues to deny suicidal ideation, and expresses regret and embarrassment about his suicide attempt. He met with a counselor and processed the options he is considering for the future, including moving to [place] to be near his son, or to [place] to be with his parents. On my assessment, the patient reports he is feeling much better, calmer and able to manage his stressors. He continues to consider his various long-term options, including moving to [place] where son lives, to [place] where parents live, or staying in [place] where he has a job currently, and lists the pros and cons of each. He is thinking about what to tell people at work, as he doesn't want to disclose the details of the reasons for his absence. He also doesn't want to disclose the details of his personal life and marital issues. He feels some anxiety about missing work and feels he needs to "make that up." He plans to stop by work to coordinate with them after discharge. He reports significantly improved mood, hope for the future, and denies suicidal ideation. He states he did not really want to , and feels he has multiple things to live for, and had not thought about how his would impact those he loves. He is able to review his safety plan, including a plan to stay with people for the next week and a half while his is out of town, as his son will be staying with him for the next couple of days, and he will then fly to [place] and stay with his son until the end of the spring break week. Though he still hopes he and his will reconcile, he is also trying to come to terms with the possible end of the relationship. Transition of Care Transition Of Care Record: was reviewed with the patient Advance Directives Advance Directives Information Provided: Yes Advance Directives: No Mental Health Advance Directive: No Advance Directives on File: No Living Will: No Power of Marketing Production Specialist: No Advance Directives Reason:: Declines as Mental Health Visit. Risk Factors Assessment Factors were mitigated by admission to the inpatient unit, discussion of diagnoses and treatment options including medications and therapy, involvement in groups and therapy on the unit, working on healthy coping skills and a discharge safety plan, family meetings with his and son, and referring him for outpatient therapy. He is reporting improved mood, has consistently denied suicidal ideation and has not engaged in self-injurious behavior, has been calm and cooperative, reports good support from family, is future oriented, and states willingness to follow-up with outpatient therapy. He is requesting discharge, and as he is no longer at acute risk of harm to himself, can be managed as an outpatient at this time. 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 Relationships: No Supportive Family: Yes Good Rapport with Provider: No (no outpatient provider) Tobacco Cessation at Discharge Tobacco Cessation Medication Prescribed at Discharge: Not Applicable/Non-Smoker Total Time Total Time Spent: Greater Than 30 Minutes Total Time Includes: Examination of the patient, Discharge Planning and Medication Reconciliation Discharge Data Lab Results 07/27/19 07/27/19 07/27/19 19:51 19:51 19:51 WBC 8.14 RBC 4.23 L Hgb 14.3 Hct 41.0 L MCV 96.9 MCH 33.8 MCHC 34.9 RDW Std Deviation 44.7 RDW Coeff of Haley 12.7 Plt Count 278 MPV 12.0 H Immature Gran % (Auto) 0.2 Neut % (Auto) 71.9 Lymph % (Auto) 20.5 [place] % (Auto) 4.9 Eos % (Auto) 2.0 Baso % (Auto) 0.5 Immature Gran # (Auto) 0.02 Neut # (Auto) 5.85 Lymph # (Auto) 1.67 [place] # (Auto) 0.40 Eos # (Auto) 0.16 Baso # (Auto) 0.04 PT 11.0 INR 1.1 Carboxyhemoglobin Sodium 137 Potassium 3.4 L Chloride 106 Carbon Dioxide 22 Anion Gap 9.0 BUN 14 Creatinine 0.98 Est Cr Clr Drug Dosing 79.2 Est GFR ( Amer) 96.1 Est GFR (Non-Af Amer) 82.9 BUN/Creatinine Ratio 14.3 Glucose 121 H Osmolality Calcium 8.8 Magnesium 2.2 Total Bilirubin 1.4 H AST 15 ALT 20 Alkaline Phosphatase 47 Total Creatine Kinase 73 Troponin I < 0.015 Total Protein 7.0 Albumin 4.1 Globulin 2.9 Albumin/Globulin Ratio 1.4 TSH Urine Color Urine Appearance Urine pH Ur Specific [place] Urine Protein Urine Glucose (UA) Urine Ketones Urine Blood Urine Nitrite Urine Bilirubin Urine Urobilinogen Ur Leukocyte Esterase Salicylates Urine Opiates Screen Ur Methadone, Qual Acetaminophen Urine Barbiturates Ur Phencyclidine (PCP) U Amphetamin/Meth Scrn MDMA (Ecstasy) Screen U Benzodiazepines Scrn Ur Cocaine Metabolite U Marijuana (THC) Screen Ethyl Alcohol mg/dL 07/27/19 07/27/19 07/27/19 19:51 19:51 19:51 WBC RBC Hgb Hct MCV MCH MCHC RDW Std Deviation RDW Coeff of Haley Plt Count MPV Immature Gran % (Auto) Neut % (Auto) Lymph % (Auto) [place] % (Auto) Eos % (Auto) Baso % (Auto) Immature Gran # (Auto) Neut # (Auto) Lymph # (Auto) [place] # (Auto) Eos # (Auto) Baso # (Auto) PT INR Carboxyhemoglobin Sodium Potassium Chloride Carbon Dioxide Anion Gap BUN Creatinine Est Cr Clr Drug Dosing Est GFR ( Amer) Est GFR (Non-Af Amer) BUN/Creatinine Ratio Glucose Osmolality 339 H Calcium Magnesium Total Bilirubin AST ALT Alkaline Phosphatase Total Creatine Kinase Troponin I Total Protein Albumin Globulin Albumin/Globulin Ratio TSH Urine Color Urine Appearance Urine pH Ur Specific [place] Urine Protein Urine Glucose (UA) Urine Ketones Urine Blood Urine Nitrite Urine Bilirubin Urine Urobilinogen Ur Leukocyte Esterase Salicylates < 1.7 L Urine Opiates Screen Ur Methadone, Qual Acetaminophen < 2 L Urine Barbiturates Ur Phencyclidine (PCP) U Amphetamin/Meth Scrn MDMA (Ecstasy) Screen U Benzodiazepines Scrn Ur Cocaine Metabolite U Marijuana (THC) Screen Ethyl Alcohol mg/dL 211.0 H 07/27/19 07/28/19 07/28/19 20:05 00:26 00:26 WBC RBC Hgb Hct MCV MCH MCHC RDW Std Deviation RDW Coeff of Haley Plt Count MPV Immature Gran % (Auto) Neut % (Auto) Lymph % (Auto) [place] % (Auto) Eos % (Auto) Baso % (Auto) Immature Gran # (Auto) Neut # (Auto) Lymph # (Auto) [place] # (Auto) Eos # (Auto) Baso # (Auto) PT INR Carboxyhemoglobin 0.0 Sodium Potassium Chloride Carbon Dioxide Anion Gap BUN Creatinine Est Cr Clr Drug Dosing Est GFR ( Amer) Est GFR (Non-Af Amer) BUN/Creatinine Ratio Glucose Osmolality Calcium Magnesium Total Bilirubin AST ALT Alkaline Phosphatase Total Creatine Kinase Troponin I Total Protein Albumin Globulin Albumin/Globulin Ratio TSH Urine Color Yellow Urine Appearance Clear Urine pH 5.0 Ur Specific [place] 1.017 Urine Protein Negative Urine Glucose (UA) Negative Urine Ketones 1+ H Urine Blood Negative Urine Nitrite Negative Urine Bilirubin Negative Urine Urobilinogen Negative Ur Leukocyte Esterase Negative Salicylates Urine Opiates Screen Neg Ur Methadone, Qual Neg Acetaminophen Urine Barbiturates Neg Ur Phencyclidine (PCP) Neg U Amphetamin/Meth Scrn Neg MDMA (Ecstasy) Screen Neg U Benzodiazepines Scrn Neg Ur Cocaine Metabolite Neg U Marijuana (THC) Screen Neg Ethyl Alcohol mg/dL 07/28/19 12:35 WBC RBC Hgb Hct MCV MCH MCHC RDW Std Deviation RDW Coeff of Haley Plt Count MPV Immature Gran % (Auto) Neut % (Auto) Lymph % (Auto) [place] % (Auto) Eos % (Auto) Baso % (Auto) Immature Gran # (Auto) Neut # (Auto) Lymph # (Auto) [place] # (Auto) Eos # (Auto) Baso # (Auto) PT INR Carboxyhemoglobin Sodium Potassium Chloride Carbon Dioxide Anion Gap BUN Creatinine Est Cr Clr Drug Dosing Est GFR ( Amer) Est GFR (Non-Af Amer) BUN/Creatinine Ratio Glucose Osmolality Calcium Magnesium Total Bilirubin AST ALT Alkaline Phosphatase Total Creatine Kinase Troponin I Total Protein Albumin Globulin Albumin/Globulin Ratio TSH 0.711 Urine Color Urine Appearance Urine pH Ur Specific [place] Urine Protein Urine Glucose (UA) Urine Ketones Urine Blood Urine Nitrite Urine Bilirubin Urine Urobilinogen Ur Leukocyte Esterase Salicylates Urine Opiates Screen Ur Methadone, Qual Acetaminophen Urine Barbiturates Ur Phencyclidine (PCP) U Amphetamin/Meth Scrn MDMA (Ecstasy) Screen U Benzodiazepines Scrn Ur Cocaine Metabolite U Marijuana (THC) Screen Ethyl Alcohol mg/dL Hospital Course (1) Suicidal ideation: 07/27 - Patient attempted suicide by alcohol overdose, left suicide note and instructions for his , and stated he intended to . - Work on healthy coping skills and discharge safety plan, including access to lethal means. He denies access to guns, and does not take any medications. 07/28 - Pt denies SI, he is better able to process the effect of his actions on his loved ones - Stating today he is "remorseful, regretful, and embarrassed" by his actions - able to recognize safety concerns expressed by treatment team and has been working on these 07/29 - Continues to deny SI, has been processing stressors, referred for therapy and had family meetings with and son. Able to review safety plan, denies safety concerns, requesting discharge. His son and his girlfriend will stay with him the next couple of days, and he will then go to [place] with them for a week. (2) Depression: 07/27 - Discussed diagnoses and treatment options, including medication, therapy, and behavioral interventions/lifestyle (sleep, nutrition, exercise, socialization, etc). He is focused on wanting to address the situation with his first, thinking that he might still be able to go to [place] with her this coming weekend. He is considering going to visit his parents in [place] next week while on spring break, if he doesn't go with his . - Family meeting with psychologist social and today. - Encourage patient to rescind his 72 hour notice and engage fully in treatment. Advised him that I do not feel he is stable for discharge, and am concerned that he is still at high risk of suicide, as no risk factors have been addressed. - Recommend outpatient mental health care. He recently started couples' counseling, and recommend individual therapy as well. 3/4 - Pt continues to believe his presentation is isolated to a very specific event. While willing for medications if recommended, he is agreeable with plan to start individual therapy and explore medications if indicated at a later time . It remains unclear that patient has clinical criteria for a major depressive disorder, but will continue to attempt to gather collateral information - Pt had a meeting with his yesterday afternoon, in which he was informed of her definitive plans to divorce the patient - patient views the certainty of this decision as a positive thing for his continued treatment - Pt had a positive visit with his son, whom patient will be staying with next week while is is away - patient even considering moving to [place] to live with his son and son's girlfriend - Pt denies ongoing SI, and has worked on a safety plan, completing recommended steps toward discharge planning - Pt still does not have solidified outpatient treatment, therefore discharge is not being considered today. It is unlikely he will meet criteria for 302 once aftercare arrangements have been made - If unwilling to rescind his 72-hour notice, he will likely be discharged to [facility] tomorrow 3 - Patient continues to report improved mood and denies SI. He has been referred to [facility] for individual therapy, and plans to continue marital therapy with his . - We have reviewed indications for antidepressant treatment, specifically persistent depressive symptoms or SI. Mental Health & Subst Abuse Tx Therapist Name of Therapist: [facility] Date of Therapist Appointment: 07/28/19 Therapy Appointment Comment: [address], [address], [place], [place] User Interface Engineer Name of User Interface Engineer: NA Post Discharge Appointments Primary Care Physician Name Of Family Doctor: [facility] Time of Appointment with PCP: Please follow up as needed Provider Appointment Comment: [address], [place] [address] Smoking Cessation Counseling Tobacco Cessation Medication Prescribed at Discharge: Not Applicable/Non-Smoker Contact Information Discharge Discharge Address: [address] [place] [address], [place] [address] Discharge Plan Discharge Items Patient Disposition: Home - Self-Care Reason For Visit: DEPRESSIVE DISORDER, NOS Discharge Diagnosis: Depression not otherwise specified Activity: Per Instructions section Non-emergency contact: Primary Care Provider and Therapist Call non-emergency contact if: your symptoms worsen Follow-up/Referrals: PCP,NO [Primary Care Provider] - Diet: Regular Addtl Attending Provider Instructions: SPECIAL CARE INSTRUCTIONS: 1. Follow through with your scheduled aftercare appointments. If unable to keep an appointment, please call to reschedule. 2. Take your medication only as prescribed. Medication should not be changed or stopped without the approval of your doctor. In the event of worsening symptoms or concerns about side effects, contact your doctor immediately. 3. Utilize new healthy coping skills, anger management skills, and stress management skills learned during your hospitalization. Journal feelings and process them with a support person. Identify stressors or situations that may result in relapse, deterioration or inappropriate behaviors and develop a plan to deal with those issues. 4. If your coping skills are ineffective and you are in crisis, contact your outpatient providers for direction. If unable to reach your providers, please call the CAN HELP LINE AT or go to the closest Emergency Room. 5. Avoid alcohol and un-prescribed drugs. 6. You have been provided with the Mental Health Advance Directives Pamphlet for your review. AFTERCARE APPOINTMENTS: * Please call your insurance company prior to your scheduled appointment to confirm your aftercare providers are covered. Take your insurance information to your appointments. WHO TO CALL AND WHEN: Medical Emergencies: For questions or emergencies related to your hospital stay, please contact the Inpatient Behavioral Health Unit at [phone]. A supply chain assistant is on-call 17/12 for the Behavioral Health Unit for emergencies At any time you feel your situation is an emergency, you may also call 911 immediately. Your Doctors Instructions noted above were prepared by provider Mae Mathew MD. Pending Studies at Discharge: No Stand-Alone Forms: [facility], Smoking Cessation, Suicide Prevention Resources Medications and DC Order Prescriptions: No Action No Known Home Medications RF: 0 Discharge Orders: Discharge Order (Routine); Ordered 07/30/19 Ordered By: Mae Mathew Admission Data Admit Date/Time: 07/28/19 01:43 Attending Provider: Mae Mathew Admit Provider: Kamilah Manning Primary Care Provider: PCP,NO Other Interventions: PSY Interdisciplinary Discharge Planning Last Done: 07/29/19 13:47 Coding Level of Care Code 31859 D/C day mgmt > 30 min Diagnoses Suicidal ideation R45.851 Depression F32.9
== END 2019-07-30 11:15 | disposition home or self-care (01) | DRG 881 ==
LOC: ED 19:07 → 3S 07-28 01:43